=== PATIENT | male | born 1935 | race Asian ===

== ENCOUNTER 2019-09-19 06:17 | Day surgery (SDC) | payer MEDICARE, OTHER, SELFPAY ==
--- NOTE | 2019-09-18 17:29 | PM.PREOP ---
Pre-operative Note Interval Note History & Physical reviewed/Exam performed by Physician: Yes Changes to H&P: No
[2019-09-19] MEDS: CATARACT EYE COMPOUND (10 DROPS/SYRINGE) 3 DROPS EYE-OP (07:18)
[2019-09-19] MEDS: PROPARACAINE 0.5% OPHTH SOL 2 DROPS EYE-OP (07:18)
[2019-09-19 07:20] VITALS: BP 151/87; PULSE 57; RESP 16; TEMP 36.2; O2SAT 96; BMI 25.0
--- NOTE | 2019-09-19 07:27 | PM.OP.1 ---
Operative Date/Time/Diagnoses Date of procedure: 09/19/19 Time of procedure: 07:45 Procedure & Clinicians Procedure: Preoperative diagnoses: 1. Left complex surgery with use of capsular dye. 2. 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 3. 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 Recent subdural hematoma now clinically stabilized after surgery and subsequent testing. 5. Hypertension. Postoperative diagnoses: 1. Left complex surgery with use of capsular dye, 2. Placement of a posterior chamber intraocular lens implant. Surgeon: Mary Parikh MD Complications: none Specimen: None Implant: ZCBOO+18.5 Blood loss: None Anesthesia: Retrobulbar with monitored standby. Description of procedure: Dictated by: Mary Parikh MD Copy to: [facility] Post operative diagnoses: 1. Left complex cataract removed with use of capsular dye and with placement of a posterior chamber intraocular lens. Procedure: Complex phacoemulsification with posterior chamber intraocular lens implant Surgeon: Mary Parikh MD Blood loss: None Anesthesia: Retrobulbar with monitored standby Description of procedure: Patient has presented with decreased vision due to cataract which is affecting activities of daily living. He has advanced cataract and has been delayed due to the development of a subdural hematoma. This has been treated for several months drain and is cleared by Neurosurgery to proceed with cataract surgery. He is higher risk for complications due to floppy iris syndrome and poor anterior capsular view. He thinks his vision is compromised both at distance and reading. He will need capsular dye and a possible Malyugin ring. The patient wants surgery to improve vision. The patient was taken to the operating room and given IV sedation. A retrobulbar block consisting of 6 cc of 2% xylocaine without epinephrine mixed half and half with 0.5% Marcaine with 1 cc of hyaluronidase added is placed between the medial and lateral 1/3 of the inferior orbital rim. Lid akinesia is obtain with 1% xylocaine with epinephrine infiltrated along the lid margin. The eye is manually massaged for 30 sec, prepped using Betadine solution, and draped in the usual sterile fashion. Temporal approach was made, a 1 mm side-port incision was performed 90 degrees from the planned corneal wound. Phenylephrine 1.5% mixed with 1% xylocaine 0.2 cc was placed into the anterior chamber. An air bubble was placed and Visudyne dye was placed to improve visibility of the anterior capsule. The dye was irrigated out to reduce bubbles. Viscoat followed by Jeremie was then placed. A 2.6 mm clear incision with a 2.6 mm blade was placed. Good dilation was present and no capsular ring was used. A 360 degree capsulorrhexis style capsulotomy was then performed with a cystitome needle on a Healon greatly aided by the capsular dye. Hydrodelineation and hydrodissection were performed. The zonules were loose but held intact. The phacoemulsification unit is introduced, and sculpting used to groove the central lens. It is then removed in chopping mode. Epi nucleus is removed with epinuclear mode and irrigation aspiration was used to remove the peripheral cortex. The posterior capsule is polished. The intraocular lens is selected, inspected, power confirmed, and placed in the posterior chamber. The pupil was constricted with Miostat. The wound was stromally hydrated and tested for leaks, there was none and was left sutureless. Vigamox 0.1 cc was placed into the anterior chamber. Kenalog 0.2 cc was placed in the superior subconjunctival space. A drop of antibiotic and was placed and the eye was patched and shielded. The patient was stable and returned to the recovery room in excellent condition. Dictated by: Mary Parikh MD Copy to: [facility] Same procedure as scheduled: Yes
--- NOTE | 2019-09-19 08:10 | SUR.OPER ---
Supine on eye stretcher, head on extension cradle secured with tape. Arms tucked at sides with blanket. Pillow under knees.
[2019-09-19] MEDS: HYALURONATE SODIUM 10 MG/ML SYRINGE INJ (08:12)
[2019-09-19] MEDS: CHONDROIDTIN/SOD HYALURONATE 1.05 ML SYRINGE INTRAOCULA (08:12)
[2019-09-19] MEDS: LIDOCAINE 2% 4 ML, BUPIVACAINE 0.5% (PF) 4 ML, HYALURONIDASE 150 UNIT INJ (08:13)
[2019-09-19] MEDS: MOXIFLOXACIN INJ 5 MG/ML VIAL EYE-OP (08:14)
[2019-09-19] MEDS: PHENYLEPHRINE/LIDOCAINE VIAL (OR) 0.2 ML EYE-OP (08:16)
[2019-09-19] MEDS: BALANCED SALT IRRIG SOLN NO.2 500 ML, EPINEPHrine 1 MG IRR (08:17)
[2019-09-19] MEDS: TRIAMCINOLONE 50 MG/5 ML VIAL INJ (08:17)
[2019-09-19] MEDS: TRYPAN BLUE 0.5 ML SYRINGE INJ (08:18)
[2019-09-19] MEDS: ERYTHROMYCIN OPHTH 1 GM OINT 1 APPLIC EYE-LEFT (08:18)
[2019-09-19 08:40] VITALS: BP 135/64; PULSE 51; RESP 16; TEMP 36.4; O2SAT 98
[2019-09-19 08:57] VITALS: BP 140/72; PULSE 51; RESP 16; TEMP 36.3; O2SAT 98
== END 2019-09-19 09:00 | disposition home or self-care (01) ==
LOC: OR 06:19
PROVIDERS: PCP Internal Medicine; Referring Provider Ophthalmology; Visit Provider Ophthalmology
PROC: (CPT 66982; principal; 2019-09-19 07:45)
DX: I10 Essential (primary) hypertension (principal); Z98.890 Other specified postprocedural states
CPT/HCPCS: 66982; J0171; J2250; J2704; J3010; J3301; J3470

== ENCOUNTER → 2020-05-11 13:20 | Outpatient (CLI) | payer MEDICARE, OTHER, SELFPAY ==
[2020-05-12 13:18] LABS: COVID19 Sendout Not Detected (Not Detect)
== END ==
PROVIDERS: PCP Internal Medicine; Visit Provider Nurse Practitioner
DX: Z01.812 Encounter for preprocedural laboratory examination (principal)
CPT/HCPCS: 87635

== ENCOUNTER 2020-05-14 08:02 | Day surgery (SDC) | payer MEDICARE, OTHER, SELFPAY ==
--- NOTE | 2020-05-13 12:04 | PM.PREOP ---
Pre-operative Note COVID-19 COVID-19 status: Negative Interval Note History & Physical reviewed/Exam performed by Physician: Yes Changes to H&P: No
--- NOTE | 2020-05-13 12:08 | P.OP_ITS ---
Operative Date/Time/Diagnoses Date of procedure: 05/14/20 Time of procedure: 08:45 Procedure & Clinicians Procedure: Preoperative diagnoses: 1. Right complex surgery with use of capsular dye . 2. 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 4. Prostate disorder 5. Hypertension 6. History of subdural hematoma Postoperative diagnoses: 1. Complex surgery with use of capsular dye, attempted Malygin ring. 2. Placement of a posterior chamber intraocular lens implant. Surgeon: Mary Parikh MD Complications: none Specimen: None Implant: ZCBOO +18.0 Blood loss: None Anesthesia: Retrobulbar with monitored standby. Description of procedure: Dictated by: Mary Parikh MD Post operative diagnoses: 1. Right cataract removed with use of capsular dye 2. Placement of a posterior chamber intraocular lens. Procedure: Phacoemulsification with posterior chamber intraocular lens implant Surgeon: Mary Parikh MD Blood loss: None Anesthesia: Retrobulbar with monitored standby Description of procedure: Patient has presented with decreased vision due to advanced cataract which is affecting activities of daily living. He has delayed surgery due to the COVID-19 epidemic and now almost mature cataract. He also has a poorly dilating pupil due floppy iris syndrome and need for capsular dye and possibly Miloop. The patient wants surgery to improve vision. The patient was taken to the operating room and given IV sedation. A retrobulbar block consisting of 6 cc of 2% xylocaine without epinephrine mixed half and half with 0.5% Marcaine with 1 cc of hyaluronidase added is placed between the medial and lateral 1/3 of the inferior orbital rim. Lid akinesia is obtain with 1% xylocaine with epinephrine infiltrated along the lid margin. The eye is manually massaged for 30 sec, prepped using Betadine solution, and draped in the usual sterile fashion. Temporal approach was made, a 1 mm side-port incision was performed 90 degrees from the planned corneal wound. Phenylephrine 1.5% mixed with 1% xylocaine 0.2 cc was placed into the anterior chamber. An air bubble was placed and Visudyne dye was placed to improve visibility of the anterior capsule. The dye was irrigated out to reduce bubbles. Viscoat followed by Healon was then placed. A 2.6 mm clear incision with a 2.6 mm blade was placed. A 7.0 mm Maluygin ring was inspected and placed into the anterior capsule. It was sequentially hooked on 2 quadrants of iris. However after the epinephrine the pupil dilated large enough that it did not stay well and it was removed from the eye prior to the surgery proceeding A 360 degree capsulorrhexis style capsulotomy was then performed with a cystitome needle on a Healon aided by the capsular dye. He also had anterior stromal haze and loose zonules but all zonules held intact. No MiLoop was used. The lens was then hydrodissected and hydro delineated with that in the neutral central position. Once the initial cleave the was made if it was freed using a 2nd instrument.Hydrodelineation and hydrodissection were performed. The phacoemulsification unit is introduced, and sculpting used to groove the central lens. It is then removed in chopping mode. Epi nucleus is removed with epinuclear mode and irrigation aspiration was used to remove the peripheral cortex. The posterior capsule is polished. The intraocular lens is selected, inspected, power confirmed, and placed in the posterior chamber. The pupil was constricted with Miostat. The wound was stromally hydrated and tested for leaks, there was none and was left sutureless. Vigamox 0.1 cc was placed into the anterior chamber. Kenalog 0.2 cc was placed in the superior subconjunctival space. A drop of antibiotic and was placed and the eye was patched and shielded. The patient was stable and returned to the recovery room in excellent condition. Dictated by: Mary Parikh MD Copy to: [facility] Same procedure as scheduled: Yes
[2020-05-14] MEDS: PROPARACAINE 0.5% OPHTH SOL 2 DROPS EYE-OP (08:37)
[2020-05-14 08:38] VITALS: BP 182/76; PULSE 55; RESP 12; TEMP 36.8; O2SAT 97; BMI 25.0
[2020-05-14] MEDS: CATARACT EYE COMPOUND (10 DROPS/SYRINGE) 3 DROPS EYE-OP (08:52)
--- NOTE | 2020-05-14 10:30 | SUR.OPER ---
Supine on eye stretcher, head on extension cradle secured with tape. Arms tucked at sides with blanket. Pillow under knees.
[2020-05-14] MEDS: HYALURONATE SODIUM 10 MG/ML SYRINGE INJ (10:37)
[2020-05-14] MEDS: ERYTHROMYCIN OPHTH 1 GM OINT 1 APPLIC EYE-RIGHT (10:37)
[2020-05-14] MEDS: CHONDROIDTIN/SOD HYALURONATE 1.05 ML SYRINGE INTRAOCULA (10:37)
[2020-05-14] MEDS: MOXIFLOXACIN INJ 5 MG/ML VIAL EYE-OP (10:37)
[2020-05-14] MEDS: TRIAMCINOLONE 50 MG/5 ML VIAL INJ (10:38)
[2020-05-14] MEDS: TRYPAN BLUE 0.5 ML SYRINGE INJ (10:38)
[2020-05-14] MEDS: PHENYLEPHRINE/LIDOCAINE VIAL (OR) 0.2 ML EYE-OP (10:38)
[2020-05-14] MEDS: BALANCED SALT IRRIG SOLN NO.2 500 ML, EPINEPHrine 1 MG IRR (10:39)
[2020-05-14] MEDS: LIDOCAINE 2% 4 ML, BUPIVACAINE 0.5% (PF) 4 ML, HYALURONIDASE 150 UNIT INJ (10:39)
[2020-05-14 11:15] VITALS: BP 161/75; PULSE 53; RESP 14; TEMP 36.2; O2SAT 98
== END 2020-05-14 11:18 | disposition home or self-care (01) ==
LOC: OR 08:04
PROVIDERS: PCP Internal Medicine; Referring Provider Internal Medicine; Visit Provider Ophthalmology
PROC: (CPT 66982; principal; 2020-05-14 09:45)
DX: H25.811 Combined forms of age-related cataract, right eye (principal); H21.81 Floppy iris syndrome; I10 Essential (primary) hypertension
CPT/HCPCS: 66982; J0171; J2704; J3301; J3470

== ENCOUNTER 2021-08-10 11:00 | Emergency (ER) | payer MEDICARE, OTHER, SELFPAY ==
[2021-08-10] VITALS (158 sets, daily range): BP systolic 74–194; BP diastolic 37–102; PULSE 80–159; RESP 12–61; TEMP 37–38.8; O2SAT 82–100; BMI 22.0
--- NOTE | 2021-08-10 10:55 | ED.GENADULT ---
HPI - General Adult <Phoebe Vick MD - Last Filed: 08/17/21 04:08> General Chief complaint: Weakness Stated complaint: Lethargy, loc Time Seen by Provider: 08/10/21 11:00 History of Present Illness HPI narrative: 85-year-old gentleman with a history of hypertension and BPH has been having increasing difficulty with intermittent abdominal pain over this month. He is followed at the [facility] and on July 22 with abdominal pain he was sent to would be emergency department with visits also on the and . Records from the [facility] indicate that he was seen on the an ultrasound was done that confirmed acute cholecystitis and he was sent to [facility]. We have requested records from that visit. His daughter notes that he was discharged from the emergency department with nausea medicine and pain medication as well as strict diet instructions. Over this most recent week he has had increasing abdominal pain, fevers, chills, weakness, lethargy, vomiting, decreased appetite. His daughter notes that his memory has gotten significantly worse to the point that he is even having trouble caring on conversations. He complains of right upper abdominal pain. On initial presentation he is significantly hypotensive and globally weak. Related Data Home Medications Medication Instructions Recorded Confirmed finasteride 1 mg tablet 1 mg PO DAILY 09/19/19 08/10/21 tamsulosin 0.4 mg capsule 0.4 mg PO BEDTIME 09/19/19 08/10/21 telmisartan 40 mg tablet (Micardis) 20 mg PO DAILY 09/19/19 08/10/21 lidocaine 5 % topical patch 1 patch TOPICAL DAILY 08/10/21 08/10/21 loratadine 10 mg tablet 10 mg PO DAILY 08/10/21 08/10/21 ondansetron 4 mg disintegrating 4 mg PO Q6HR PRN 08/10/21 08/10/21 tablet oxycodone-acetaminophen 5 mg-325 1 tab PO Q6HR PRN 08/10/21 08/10/21 mg tablet (Percocet) Allergies Allergy/AdvReac Type Severity Reaction Status Date / Time lisinopril Allergy Intermediate Verified 05/14/20 08:34 Review of Systems <Phoebe Vick MD - Last Filed: 08/17/21 04:08> Review of Systems Narrative: Remainder of complete review of systems is limited because of the acute illness and acute cognitive deficits Patient History <Phoebe Vick MD - Last Filed: 08/17/21 04:08> Medical History (Updated 08/10/21 @ 17:13 by Phoebe Vick MD) BPH (benign prostatic hyperplasia) Hypertension Surgical History (Updated 08/10/21 @ 11:05 by Phoebe Vick MD) History of cataract surgery Social History household members: spouse Smoking Status: Former smoker alcohol intake: current Smoking Status: Former smoker alcohol intake frequency: holidays/special occasions only Substance Use Type: does not use Exam <Phoebe Vick MD - Last Filed: 08/17/21 04:08> Initial Vital Signs Initial Vital Signs: Vital Signs Temperature 98.6 F 08/10/21 10:45 Pulse Rate 80 08/10/21 10:45 Respiratory Rate 17 08/10/21 10:45 Blood Pressure 83/46 L 08/10/21 10:45 Pulse Oximetry 93 08/10/21 10:45 General: 85-year-old gentleman appears acutely ill, decreased mental status but maintaining airway, hypotensive. Able to participate in history but majority of history is obtained from his daughter.Well-nourished well-developed HEENT: Dry mucous membranes, normal sclera with reactive pupils, Neck: No JVD, supple Respiratory: Lungs are clear to auscultation, no wheezing no rales no rhonchi. Full and symmetrical air movement Cardiac: Regular rate and rhythm no murmurs no bruits Abdomen: Soft, tenderness in the right upper quadrant without rebound or guarding, hypoactive bowel tones, no flank pain Skin: Warm and dry, no rashes, no areas of concern for infection Neurologic: Globally weak but freely moving all extremities. Extremities: No trauma, well perfused, no edema. Psych: Cooperative, can answer direct questions <Tani Looney DO - Last Filed: 08/11/21 17:13> Initial Vital Signs Initial Vital Signs: Vital Signs Temperature 98.6 F 08/10/21 10:45 Pulse Rate 80 08/10/21 10:45 Respiratory Rate 17 08/10/21 10:45 Blood Pressure 83/46 L 08/10/21 10:45 Pulse Oximetry 93 08/10/21 10:45 Course <Phoebe Vick MD - Last Filed: 08/17/21 04:08> Orders Ordered: Discontinued Medications Acetaminophen (Acetaminophen 650 Mg Supp) 650 mg [place] NOW ONE Stop: 08/10/21 14:56 Last Admin: 08/10/21 15:00 Dose: 650 mg Documented by: VALENTINA Hydromorphone HCl (Hydromorphone 0.5 Mg Inj) 0.5 mg IV Q15MIN PRN PRN Reason: Pain, Last Admin: 08/10/21 19:42 Dose: 0.5 mg Documented by: Admin: 08/10/21 15:40 Dose: 0.5 mg Documented by: VALENTINA Sodium Chloride (Normal Saline 0.9%) 1,973.13 mls @ 657.71 mls/hr 30 ml/kg infuse over 3 hr (1973.13 ml) IV NOW ONE Stop: 08/10/21 14:08 Last Infusion: 08/10/21 12:15 Dose: 0 mls/hr Documented by: Admin: 08/10/21 11:32 Dose: 657.71 mls/hr Documented by: LISE Piperacillin Sod/Tazobactam (Sod 4.5 gm/ Sodium Chloride) 100 mls @ 200 mls/hr IV NOW ONE Stop: 08/10/21 11:10 Last Infusion: 08/10/21 12:05 Dose: 0 mls/hr Documented by: Admin: 08/10/21 11:32 Dose: 200 mls/hr Documented by: LISE NOREPINEPHRINE BITARTRATE/D5W (Levophed) 4 mg in 250 mls @ 30 mls/hr IV TITRATE CRISTA; Protocol Sodium Chloride (Normal Saline 0.9%) 1,000 mls @ 1,000 mls/hr IV BOLUS ONE Stop: 08/10/21 13:12 Last Infusion: 08/10/21 13:42 Dose: 0 mls/hr Documented by: Admin: 08/10/21 12:17 Dose: 1,000 mls/hr Documented by: LISE Sodium Chloride (Normal Saline 0.9%) 1,000 mls @ 1,000 mls/hr IV BOLUS ONE Stop: 08/10/21 15:58 Last Infusion: 08/10/21 16:03 Dose: 0 mls/hr Documented by: Admin: 08/10/21 14:45 Dose: 1,000 mls/hr Documented by: VALENTINA Lactated Ringer's (Lactated Ringers) 1,000 mls @ 200 mls/hr IV CONT CRISTA Last Infusion: 08/11/21 00:12 Dose: 0 mls/hr Documented by: Admin: 08/10/21 21:19 Dose: 200 mls/hr Documented by: Infusion: 08/10/21 21:03 Dose: 200 mls/hr Documented by: Admin: 08/10/21 16:03 Dose: 200 mls/hr Documented by: VALENTINA Piperacillin Sod/Tazobactam (Sod 3.375 gm/ Sodium Chloride) 100 mls @ 25 mls/hr IV Q8H [facility] Last Infusion: 08/11/21 00:53 Dose: 0 mls/hr Documented by: Admin: 08/10/21 20:04 Dose: 25 mls/hr Documented by: JUVENTINO Vital Signs Vital signs: Vital Signs - 8 hr 08/10/21 13:45 08/10/21 14:00 08/10/21 14:15 Temperature Pulse Rate 85 81 94 H Respiratory Rate 31 H 29 H 32 H Blood Pressure Pulse Oximetry 95 95 92 08/10/21 14:30 08/10/21 14:36 08/10/21 14:43 Temperature Pulse Rate 109 H 117 H 125 H Respiratory Rate 33 H 44 H 47 H Blood Pressure 177/87 H 176/91 H Pulse Oximetry 91 91 82 L 08/10/21 14:45 08/10/21 15:00 08/10/21 15:07 Temperature 99.7 F H Pulse Rate 129 H 154 H 156 H Respiratory Rate 47 H 51 H 44 H Blood Pressure 176/100 H Pulse Oximetry 87 L 98 98 08/10/21 15:15 08/10/21 15:23 08/10/21 15:24 Temperature 102 F H Pulse Rate 159 H 155 H 157 H Respiratory Rate 47 H 44 H 44 H Blood Pressure 192/102 H 173/100 H 194/83 H Pulse Oximetry 94 100 97 08/10/21 15:29 08/10/21 15:30 08/10/21 15:35 Temperature Pulse Rate 150 H 152 H 145 H Respiratory Rate 38 H 54 H 61 H Blood Pressure 192/91 H Pulse Oximetry 91 94 99 08/10/21 15:40 08/10/21 15:45 08/10/21 15:50 Temperature Pulse Rate 144 H 126 H 123 H Respiratory Rate 36 H 21 27 H Blood Pressure 107/53 L Pulse Oximetry 99 99 95 08/10/21 15:54 08/10/21 15:55 08/10/21 16:00 Temperature Pulse Rate 122 H 121 H 118 H Respiratory Rate 23 23 34 H Blood Pressure 98/46 L 96/46 L Pulse Oximetry 94 95 96 08/10/21 16:05 08/10/21 16:10 08/10/21 16:15 Temperature Pulse Rate 120 H 117 H 118 H Respiratory Rate 27 H 23 24 Blood Pressure 85/43 L Pulse Oximetry 95 96 96 08/10/21 16:20 08/10/21 16:24 08/10/21 16:25 Temperature Pulse Rate 117 H 118 H 118 H Respiratory Rate 23 26 H 22 Blood Pressure 86/46 L 90/42 L Pulse Oximetry 96 97 97 08/10/21 16:30 08/10/21 16:35 08/10/21 16:40 Temperature Pulse Rate 118 H 116 H 117 H Respiratory Rate 28 H 20 32 H Blood Pressure 91/43 L 93/46 L 92/45 L Pulse Oximetry 97 98 98 08/10/21 16:45 08/10/21 16:50 08/10/21 16:55 Temperature Pulse Rate 119 H 121 H 117 H Respiratory Rate 29 H 33 H 22 Blood Pressure 96/52 L 97/50 L 104/53 L Pulse Oximetry 98 98 98 08/10/21 17:00 08/10/21 17:05 08/10/21 17:10 Temperature Pulse Rate 116 H 117 H 118 H Respiratory Rate 21 37 H 17 Blood Pressure 97/50 L 97/50 L 103/53 L Pulse Oximetry 98 98 98 08/10/21 17:15 08/10/21 17:20 08/10/21 17:25 Temperature Pulse Rate 116 H 119 H 116 H Respiratory Rate 19 21 21 Blood Pressure 99/55 L 99/54 L 94/51 L Pulse Oximetry 97 97 97 08/10/21 17:30 08/10/21 17:35 08/10/21 17:40 Temperature Pulse Rate 116 H 116 H 114 H Respiratory Rate 16 25 H 25 H Blood Pressure 94/55 L 96/49 L 97/50 L Pulse Oximetry 97 97 97 08/10/21 17:45 08/10/21 17:50 08/10/21 17:55 Temperature Pulse Rate 113 H 111 H 112 H Respiratory Rate 23 20 22 Blood Pressure 92/52 L 98/52 L 86/47 L Pulse Oximetry 97 97 97 08/10/21 18:00 08/10/21 18:05 08/10/21 18:10 Temperature Pulse Rate 111 H 110 H 109 H Respiratory Rate 17 21 19 Blood Pressure 86/48 L 86/49 L 86/49 L Pulse Oximetry 97 97 97 08/10/21 18:15 08/10/21 18:20 08/10/21 18:25 Temperature Pulse Rate 108 H 107 H 105 H Respiratory Rate 27 H 25 H 24 Blood Pressure 86/49 L 83/48 L 94/53 L Pulse Oximetry 97 98 98 08/10/21 18:30 08/10/21 18:35 08/10/21 18:40 Temperature Pulse Rate 104 H 104 H 104 H Respiratory Rate 23 24 23 Blood Pressure 91/52 L 89/54 L 90/51 L Pulse Oximetry 97 97 96 08/10/21 18:45 08/10/21 18:50 08/10/21 18:55 Temperature Pulse Rate 103 H 103 H 102 H Respiratory Rate 15 20 22 Blood Pressure 91/54 L 90/51 L 89/54 L Pulse Oximetry 97 97 97 08/10/21 19:00 08/10/21 19:05 08/10/21 19:10 Temperature Pulse Rate 101 H 105 H 103 H Respiratory Rate 28 H 31 H 36 H Blood Pressure 92/54 L 103/57 L 108/53 L Pulse Oximetry 98 96 96 08/10/21 19:15 08/10/21 19:20 08/10/21 19:21 Temperature Pulse Rate 100 H 100 H 103 H Respiratory Rate 29 H 28 H 30 H Blood Pressure 96/53 L 109/56 L Pulse Oximetry 97 98 98 08/10/21 19:25 08/10/21 19:30 08/10/21 19:35 Temperature Pulse Rate 100 H 100 H 98 H Respiratory Rate 28 H 24 26 H Blood Pressure 98/56 L 94/51 L 98/57 L Pulse Oximetry 97 97 97 08/10/21 19:40 08/10/21 19:45 08/10/21 19:50 Temperature Pulse Rate 98 H 94 H 94 H Respiratory Rate 29 H 28 H 18 Blood Pressure 102/61 95/54 L 85/54 L Pulse Oximetry 98 97 97 08/10/21 19:55 08/10/21 20:00 08/10/21 20:05 Temperature Pulse Rate 95 H 97 H 98 H Respiratory Rate 18 18 17 Blood Pressure 98/54 L 104/56 L 105/55 L Pulse Oximetry 97 97 98 08/10/21 20:10 08/10/21 20:15 08/10/21 20:20 Temperature Pulse Rate 100 H 101 H 101 H Respiratory Rate 19 19 16 Blood Pressure 110/59 L 115/63 115/62 Pulse Oximetry 97 96 97 08/10/21 20:25 08/10/21 20:30 08/10/21 20:46 Temperature 99.8 F H Pulse Rate 101 H 100 H Respiratory Rate 19 16 Blood Pressure 109/56 L 111/55 L Pulse Oximetry 97 98 <Tani Looney DO - Last Filed: 08/11/21 17:13> Orders Ordered: Discontinued Medications Acetaminophen (Acetaminophen 650 Mg Supp) 650 mg [place] NOW ONE Stop: 08/10/21 14:56 Last Admin: 08/10/21 15:00 Dose: 650 mg Documented by: VALENTINA Hydromorphone HCl (Hydromorphone 0.5 Mg Inj) 0.5 mg IV Q15MIN PRN PRN Reason: Pain, Last Admin: 08/10/21 19:42 Dose: 0.5 mg Documented by: Admin: 08/10/21 15:40 Dose: 0.5 mg Documented by: VALENTINA Sodium Chloride (Normal Saline 0.9%) 1,973.13 mls @ 657.71 mls/hr 30 ml/kg infuse over 3 hr (1973.13 ml) IV NOW ONE Stop: 08/10/21 14:08 Last Infusion: 08/10/21 12:15 Dose: 0 mls/hr Documented by: Admin: 08/10/21 11:32 Dose: 657.71 mls/hr Documented by: LISE Piperacillin Sod/Tazobactam (Sod 4.5 gm/ Sodium Chloride) 100 mls @ 200 mls/hr IV NOW ONE Stop: 08/10/21 11:10 Last Infusion: 08/10/21 12:05 Dose: 0 mls/hr Documented by: Admin: 08/10/21 11:32 Dose: 200 mls/hr Documented by: LISE NOREPINEPHRINE BITARTRATE/D5W (Levophed) 4 mg in 250 mls @ 30 mls/hr IV TITRATE CRISTA; Protocol Sodium Chloride (Normal Saline 0.9%) 1,000 mls @ 1,000 mls/hr IV BOLUS ONE Stop: 08/10/21 13:12 Last Infusion: 08/10/21 13:42 Dose: 0 mls/hr Documented by: Admin: 08/10/21 12:17 Dose: 1,000 mls/hr Documented by: LISE Sodium Chloride (Normal Saline 0.9%) 1,000 mls @ 1,000 mls/hr IV BOLUS ONE Stop: 08/10/21 15:58 Last Infusion: 08/10/21 16:03 Dose: 0 mls/hr Documented by: Admin: 08/10/21 14:45 Dose: 1,000 mls/hr Documented by: VALENTINA Lactated Ringer's (Lactated Ringers) 1,000 mls @ 200 mls/hr IV CONT CRISTA Last Infusion: 08/11/21 00:12 Dose: 0 mls/hr Documented by: Admin: 08/10/21 21:19 Dose: 200 mls/hr Documented by: Infusion: 08/10/21 21:03 Dose: 200 mls/hr Documented by: Admin: 08/10/21 16:03 Dose: 200 mls/hr Documented by: VALENTINA Piperacillin Sod/Tazobactam (Sod 3.375 gm/ Sodium Chloride) 100 mls @ 25 mls/hr IV Q8H [facility] Last Infusion: 08/11/21 00:53 Dose: 0 mls/hr Documented by: Admin: 08/10/21 20:04 Dose: 25 mls/hr Documented by: KWOYSKI Vital Signs Vital signs: Vital Signs - 8 hr 08/10/21 13:45 08/10/21 14:00 08/10/21 14:15 Temperature Pulse Rate 85 81 94 H Respiratory Rate 31 H 29 H 32 H Blood Pressure Pulse Oximetry 95 95 92 08/10/21 14:30 08/10/21 14:36 08/10/21 14:43 Temperature Pulse Rate 109 H 117 H 125 H Respiratory Rate 33 H 44 H 47 H Blood Pressure 177/87 H 176/91 H Pulse Oximetry 91 91 82 L 08/10/21 14:45 08/10/21 15:00 08/10/21 15:07 Temperature 99.7 F H Pulse Rate 129 H 154 H 156 H Respiratory Rate 47 H 51 H 44 H Blood Pressure 176/100 H Pulse Oximetry 87 L 98 98 08/10/21 15:15 08/10/21 15:23 08/10/21 15:24 Temperature 102 F H Pulse Rate 159 H 155 H 157 H Respiratory Rate 47 H 44 H 44 H Blood Pressure 192/102 H 173/100 H 194/83 H Pulse Oximetry 94 100 97 08/10/21 15:29 08/10/21 15:30 08/10/21 15:35 Temperature Pulse Rate 150 H 152 H 145 H Respiratory Rate 38 H 54 H 61 H Blood Pressure 192/91 H Pulse Oximetry 91 94 99 08/10/21 15:40 08/10/21 15:45 08/10/21 15:50 Temperature Pulse Rate 144 H 126 H 123 H Respiratory Rate 36 H 21 27 H Blood Pressure 107/53 L Pulse Oximetry 99 99 95 08/10/21 15:54 08/10/21 15:55 08/10/21 16:00 Temperature Pulse Rate 122 H 121 H 118 H Respiratory Rate 23 23 34 H Blood Pressure 98/46 L 96/46 L Pulse Oximetry 94 95 96 08/10/21 16:05 08/10/21 16:10 08/10/21 16:15 Temperature Pulse Rate 120 H 117 H 118 H Respiratory Rate 27 H 23 24 Blood Pressure 85/43 L Pulse Oximetry 95 96 96 08/10/21 16:20 08/10/21 16:24 08/10/21 16:25 Temperature Pulse Rate 117 H 118 H 118 H Respiratory Rate 23 26 H 22 Blood Pressure 86/46 L 90/42 L Pulse Oximetry 96 97 97 08/10/21 16:30 08/10/21 16:35 08/10/21 16:40 Temperature Pulse Rate 118 H 116 H 117 H Respiratory Rate 28 H 20 32 H Blood Pressure 91/43 L 93/46 L 92/45 L Pulse Oximetry 97 98 98 08/10/21 16:45 08/10/21 16:50 08/10/21 16:55 Temperature Pulse Rate 119 H 121 H 117 H Respiratory Rate 29 H 33 H 22 Blood Pressure 96/52 L 97/50 L 104/53 L Pulse Oximetry 98 98 98 08/10/21 17:00 08/10/21 17:05 08/10/21 17:10 Temperature Pulse Rate 116 H 117 H 118 H Respiratory Rate 21 37 H 17 Blood Pressure 97/50 L 97/50 L 103/53 L Pulse Oximetry 98 98 98 08/10/21 17:15 08/10/21 17:20 08/10/21 17:25 Temperature Pulse Rate 116 H 119 H 116 H Respiratory Rate 19 21 21 Blood Pressure 99/55 L 99/54 L 94/51 L Pulse Oximetry 97 97 97 08/10/21 17:30 08/10/21 17:35 08/10/21 17:40 Temperature Pulse Rate 116 H 116 H 114 H Respiratory Rate 16 25 H 25 H Blood Pressure 94/55 L 96/49 L 97/50 L Pulse Oximetry 97 97 97 08/10/21 17:45 08/10/21 17:50 08/10/21 17:55 Temperature Pulse Rate 113 H 111 H 112 H Respiratory Rate 23 20 22 Blood Pressure 92/52 L 98/52 L 86/47 L Pulse Oximetry 97 97 97 08/10/21 18:00 08/10/21 18:05 08/10/21 18:10 Temperature Pulse Rate 111 H 110 H 109 H Respiratory Rate 17 21 19 Blood Pressure 86/48 L 86/49 L 86/49 L Pulse Oximetry 97 97 97 08/10/21 18:15 08/10/21 18:20 08/10/21 18:25 Temperature Pulse Rate 108 H 107 H 105 H Respiratory Rate 27 H 25 H 24 Blood Pressure 86/49 L 83/48 L 94/53 L Pulse Oximetry 97 98 98 08/10/21 18:30 08/10/21 18:35 08/10/21 18:40 Temperature Pulse Rate 104 H 104 H 104 H Respiratory Rate 23 24 23 Blood Pressure 91/52 L 89/54 L 90/51 L Pulse Oximetry 97 97 96 08/10/21 18:45 08/10/21 18:50 08/10/21 18:55 Temperature Pulse Rate 103 H 103 H 102 H Respiratory Rate 15 20 22 Blood Pressure 91/54 L 90/51 L 89/54 L Pulse Oximetry 97 97 97 08/10/21 19:00 08/10/21 19:05 08/10/21 19:10 Temperature Pulse Rate 101 H 105 H 103 H Respiratory Rate 28 H 31 H 36 H Blood Pressure 92/54 L 103/57 L 108/53 L Pulse Oximetry 98 96 96 08/10/21 19:15 08/10/21 19:20 08/10/21 19:21 Temperature Pulse Rate 100 H 100 H 103 H Respiratory Rate 29 H 28 H 30 H Blood Pressure 96/53 L 109/56 L Pulse Oximetry 97 98 98 08/10/21 19:25 08/10/21 19:30 08/10/21 19:35 Temperature Pulse Rate 100 H 100 H 98 H Respiratory Rate 28 H 24 26 H Blood Pressure 98/56 L 94/51 L 98/57 L Pulse Oximetry 97 97 97 08/10/21 19:40 08/10/21 19:45 08/10/21 19:50 Temperature Pulse Rate 98 H 94 H 94 H Respiratory Rate 29 H 28 H 18 Blood Pressure 102/61 95/54 L 85/54 L Pulse Oximetry 98 97 97 08/10/21 19:55 08/10/21 20:00 08/10/21 20:05 Temperature Pulse Rate 95 H 97 H 98 H Respiratory Rate 18 18 17 Blood Pressure 98/54 L 104/56 L 105/55 L Pulse Oximetry 97 97 98 08/10/21 20:10 08/10/21 20:15 08/10/21 20:20 Temperature Pulse Rate 100 H 101 H 101 H Respiratory Rate 19 19 16 Blood Pressure 110/59 L 115/63 115/62 Pulse Oximetry 97 96 97 08/10/21 20:25 08/10/21 20:30 08/10/21 20:46 Temperature 99.8 F H Pulse Rate 101 H 100 H Respiratory Rate 19 16 Blood Pressure 109/56 L 111/55 L Pulse Oximetry 97 98 Medical Decision Making <Phoebe Vick MD - Last Filed: 08/17/21 04:08> Lab Data Result diagrams: 08/10/21 10:50 08/10/21 10:50 Labs: Lab Results 08/10/21 08/10/21 08/10/21 Range/Units 10:50 10:50 10:50 WBC 16.9 H (4.5-11.0) X10^3/uL RBC 4.26 L (4.5-5.9) X10^6/uL Hgb 9.7 L (13.5-17.5) g/dL Hct 30.4 L (41-53) % MCV 71.3 L (80-100) fL MCH 22.7 L (26-34) PG MCHC 31.9 (30-36) % RDW 13.9 (11.6-14.8) % Plt Count 278 (150-400) X10^3/uL Neut % (Auto) 94.4 H (50-75) % Lymph % (Auto) 1.2 L (25-40) % [place] % (Auto) 3.9 (3-14) % Eos % (Auto) 0.1 L (2-4) % Baso % (Auto) 0.4 (0-2) % Neut # (Auto) 66351 H (0514-5684) /uL Lymph # (Auto) 200 L (6495-5541) /uL [place] # (Auto) 700 (0-900) /uL Eos # (Auto) 0 (0-450) /uL Baso # (Auto) 100 (0-100) /uL Sodium 133 L (137-145) mmol/L Potassium 3.9 (3.4-5.1) mmol/L Chloride 102 (98-107) mmol/L Carbon Dioxide 27 (22-32) mmol/L BUN 61 H (9-20) mg/dL Creatinine 1.68 H (0.66-1.25) mg/dL Estimated GFR 39.2 L (>60) mL/min BUN/Creatinine Ratio 36.3 H (6-22) Glucose 179 H (80-110) mg/dL Lactate 1.7 (0.7-2.1) mmol/L Calcium 7.8 L (8.4-10.2) mg/dL Total Bilirubin 1.0 (0.2-1.3) mg/dL AST 142 H (17-59) IU/L ALT 124 H (<50) IU/L Alkaline Phosphatase 169 H (38-126) U/L Total Creatine Kinase 50 L (55-170) U/L CK-MB (CK-2) TNP CK-MB (CK-2) Rel Index TNP Troponin I 0.134 H* (0.01-0.034) ng/mL Total Protein 5.5 L (6.3-8.2) g/dL Albumin 2.5 L (3.5-5.0) g/dL Globulin 3.0 (1.7-4.1) g/dL Albumin/Globulin Ratio 0.8 L (1.0-2.8) Lipase 31 (23-300) U/L Procalcitonin 61.1 H (<0.5) ng/mL Urine Color Urine Appearance Urine pH (4.5-8.0) Ur Specific [place] (1.000-1.035) Urine Protein (Negative) Urine Glucose (UA) (Negative) g/dL Urine Ketones (NEGATIVE) Urine Occult Blood (Negative) Urine Nitrate (Negative) Urine Bilirubin (NEGATIVE) Urine Urobilinogen (0.2) E.U./dL Ur Leukocyte Esterase (NEGATIVE) Urine RBC (0-5/HPF) Urine WBC (0-5/HPF) Ur Squamous Epith Cells (0-5/HPF) Urine Bacteria (None) Hyaline Casts (None) Granular Casts (None) Urine Mucus (Negative) Ur Culture Indicated? A. baumannii (PCR) (Not Detect) Madhavi albicans (PCR) (Not Detect) C. glabrata (PCR) (Not Detect) C. krusei (PCR) (Not Detect) C. parapsilosis (PCR) (Not Detect) C. tropicalis (PCR) (Not Detect) SARS-CoV-2 (PCR) (Negative) Enterobacteriac sp PCR (Not Detect) E. cloacae complex PCR (Not Detect) Enterococcus sp PCR (Not Detect) E. coli (PCR) (Not Detect) H. influenzae (PCR) (Not Detect) Klebsiella oxytoca PCR (Not Detect) Klebsiella pneumoniae (Not Detect) List. monocytogenes PCR (Not Detect) N. meningitidis (PCR) (Not Detect) Proteus species (PCR) (Not Detect) Serratia marcescens PCR (Not Detect) Staphylococcus sp PCR (Not Detect) Staph aureus (PCR) (Not Detect) mecA-Methicil Res Gene (Not Detect) Streptococcus sp PCR (Not Detect) Group A Strep (PCR) (Not Detect) Strep agalactiae (PCR) (Not Detect) Strep pneumoniae (PCR) (Not Detect) P. aeruginosa (PCR) (Not Detect) Kelly/B-Vanco Res Genes (Not Detect) KPC-Carbap Res Gene PCR (Not Detect) 08/10/21 08/10/21 08/10/21 Range/Units 11:00 11:00 11:15 WBC (4.5-11.0) X10^3/uL RBC (4.5-5.9) X10^6/uL Hgb (13.5-17.5) g/dL Hct (41-53) % MCV (80-100) fL MCH (26-34) PG MCHC (30-36) % RDW (11.6-14.8) % Plt Count (150-400) X10^3/uL Neut % (Auto) (50-75) % Lymph % (Auto) (25-40) % [place] % (Auto) (3-14) % Eos % (Auto) (2-4) % Baso % (Auto) (0-2) % Neut # (Auto) (0608-4958) /uL Lymph # (Auto) (1090-4150) /uL [place] # (Auto) (0-900) /uL Eos # (Auto) (0-450) /uL Baso # (Auto) (0-100) /uL Sodium (137-145) mmol/L Potassium (3.4-5.1) mmol/L Chloride (98-107) mmol/L Carbon Dioxide (22-32) mmol/L BUN (9-20) mg/dL Creatinine (0.66-1.25) mg/dL Estimated GFR (>60) mL/min BUN/Creatinine Ratio (6-22) Glucose (80-110) mg/dL Lactate (0.7-2.1) mmol/L Calcium (8.4-10.2) mg/dL Total Bilirubin (0.2-1.3) mg/dL AST (17-59) IU/L ALT (<50) IU/L Alkaline Phosphatase (38-126) U/L Total Creatine Kinase (55-170) U/L CK-MB (CK-2) CK-MB (CK-2) Rel Index Troponin I (0.01-0.034) ng/mL Total Protein (6.3-8.2) g/dL Albumin (3.5-5.0) g/dL Globulin (1.7-4.1) g/dL Albumin/Globulin Ratio (1.0-2.8) Lipase (23-300) U/L Procalcitonin (<0.5) ng/mL Urine Color Yellow Urine Appearance Clear Urine pH 5.0 (4.5-8.0) Ur Specific [place] 1.010 (1.000-1.035) Urine Protein 1+ H (Negative) Urine Glucose (UA) Negative (Negative) g/dL Urine Ketones Negative (NEGATIVE) Urine Occult Blood Trace-intact (Negative) Urine Nitrate Negative (Negative) Urine Bilirubin Negative (NEGATIVE) Urine Urobilinogen 0.2 (0.2) E.U./dL Ur Leukocyte Esterase Negative (NEGATIVE) Urine RBC None seen (0-5/HPF) Urine WBC 0-1/hpf (0-5/HPF) Ur Squamous Epith Cells None seen (0-5/HPF) Urine Bacteria None seen (None) Hyaline Casts 1-5/lpf (None) Granular Casts 1-5/lpf (None) Urine Mucus 1+ H (Negative) Ur Culture Indicated? Cult not indicated A. baumannii (PCR) Not detected (Not Detect) Madhavi albicans (PCR) Not detected (Not Detect) C. glabrata (PCR) Not detected (Not Detect) C. krusei (PCR) Not detected (Not Detect) C. parapsilosis (PCR) Not detected (Not Detect) C. tropicalis (PCR) Not detected (Not Detect) SARS-CoV-2 (PCR) Negative (Negative) Enterobacteriac sp PCR Detected H (Not Detect) E. cloacae complex PCR Not detected (Not Detect) Enterococcus sp PCR Not detected (Not Detect) E. coli (PCR) Not detected (Not Detect) H. influenzae (PCR) Not detected (Not Detect) Klebsiella oxytoca PCR Not detected (Not Detect) Klebsiella pneumoniae Detected H (Not Detect) List. monocytogenes PCR Not detected (Not Detect) N. meningitidis (PCR) Not detected (Not Detect) Proteus species (PCR) Not detected (Not Detect) Serratia marcescens PCR Not detected (Not Detect) Staphylococcus sp PCR Not detected (Not Detect) Staph aureus (PCR) Not detected (Not Detect) mecA-Methicil Res Gene Not detected (Not Detect) Streptococcus sp PCR Not detected (Not Detect) Group A Strep (PCR) Not detected (Not Detect) Strep agalactiae (PCR) Not detected (Not Detect) Strep pneumoniae (PCR) Not detected (Not Detect) P. aeruginosa (PCR) Not detected (Not Detect) Kelly/B-Vanco Res Genes Not detected (Not Detect) KPC-Carbap Res Gene PCR Not detected (Not Detect) 08/10/21 08/10/21 Range/Units 16:00 16:00 WBC (4.5-11.0) X10^3/uL RBC (4.5-5.9) X10^6/uL Hgb (13.5-17.5) g/dL Hct (41-53) % MCV (80-100) fL MCH (26-34) PG MCHC (30-36) % RDW (11.6-14.8) % Plt Count (150-400) X10^3/uL Neut % (Auto) (50-75) % Lymph % (Auto) (25-40) % [place] % (Auto) (3-14) % Eos % (Auto) (2-4) % Baso % (Auto) (0-2) % Neut # (Auto) (8102-9367) /uL Lymph # (Auto) (6729-6977) /uL [place] # (Auto) (0-900) /uL Eos # (Auto) (0-450) /uL Baso # (Auto) (0-100) /uL Sodium (137-145) mmol/L Potassium (3.4-5.1) mmol/L Chloride (98-107) mmol/L Carbon Dioxide (22-32) mmol/L BUN (9-20) mg/dL Creatinine (0.66-1.25) mg/dL Estimated GFR (>60) mL/min BUN/Creatinine Ratio (6-22) Glucose (80-110) mg/dL Lactate 1.4 (0.7-2.1) mmol/L Calcium (8.4-10.2) mg/dL Total Bilirubin (0.2-1.3) mg/dL AST (17-59) IU/L ALT (<50) IU/L Alkaline Phosphatase (38-126) U/L Total Creatine Kinase (55-170) U/L CK-MB (CK-2) CK-MB (CK-2) Rel Index Troponin I 0.083 H (0.01-0.034) ng/mL Total Protein (6.3-8.2) g/dL Albumin (3.5-5.0) g/dL Globulin (1.7-4.1) g/dL Albumin/Globulin Ratio (1.0-2.8) Lipase (23-300) U/L Procalcitonin (<0.5) ng/mL Urine Color Urine Appearance Urine pH (4.5-8.0) Ur Specific [place] (1.000-1.035) Urine Protein (Negative) Urine Glucose (UA) (Negative) g/dL Urine Ketones (NEGATIVE) Urine Occult Blood (Negative) Urine Nitrate (Negative) Urine Bilirubin (NEGATIVE) Urine Urobilinogen (0.2) E.U./dL Ur Leukocyte Esterase (NEGATIVE) Urine RBC (0-5/HPF) Urine WBC (0-5/HPF) Ur Squamous Epith Cells (0-5/HPF) Urine Bacteria (None) Hyaline Casts (None) Granular Casts (None) Urine Mucus (Negative) Ur Culture Indicated? A. baumannii (PCR) (Not Detect) Madhavi albicans (PCR) (Not Detect) C. glabrata (PCR) (Not Detect) C. krusei (PCR) (Not Detect) C. parapsilosis (PCR) (Not Detect) C. tropicalis (PCR) (Not Detect) SARS-CoV-2 (PCR) (Negative) Enterobacteriac sp PCR (Not Detect) E. cloacae complex PCR (Not Detect) Enterococcus sp PCR (Not Detect) E. coli (PCR) (Not Detect) H. influenzae (PCR) (Not Detect) Klebsiella oxytoca PCR (Not Detect) Klebsiella pneumoniae (Not Detect) List. monocytogenes PCR (Not Detect) N. meningitidis (PCR) (Not Detect) Proteus species (PCR) (Not Detect) Serratia marcescens PCR (Not Detect) Staphylococcus sp PCR (Not Detect) Staph aureus (PCR) (Not Detect) mecA-Methicil Res Gene (Not Detect) Streptococcus sp PCR (Not Detect) Group A Strep (PCR) (Not Detect) Strep agalactiae (PCR) (Not Detect) Strep pneumoniae (PCR) (Not Detect) P. aeruginosa (PCR) (Not Detect) Kelly/B-Vanco Res Genes (Not Detect) KPC-Carbap Res Gene PCR (Not Detect) Imaging Data CT scan - abdomen/pelvis: Radiologist's Impression: FINDINGS: ? Lower thorax:? Moderate right pleural effusion with calcified pleural plaquing noted.? Associated compressive atelectasis and or infiltrate.? Left lung bases clear.? Heart size normal.? No hiatal hernia. ? Liver:? Multiple hepatic low-density lesions measure up to 5.0 x 3.3 cm in the right hepatic lobe.? Irregular enhancement noted without significant encapsulation. ? Biliary system:? Gallbladder shows wall thickening and probable trace pericholecystic fluid. ? Pancreas:? Unremarkable without mass or inflammation evident. ? Spleen:? Normal in size and density. ? Adrenals:? Normal morphology and density. ? Reproductive system:? Unremarkable as visualized. ? Urinary system:? Normal renal size and attenuation.? 2.7 cm right renal cortical simple cyst present.? No renal calculi, hydronephrosis, or solid mass present.? Urinary bladder is decompressed with a Adams catheter curled in the lumen of the bladder. ? Gastrointestinal system:? The bowel is unremarkable without evidence of bowel obstruction or inflammation. The stomach appears unremarkable.? Probable duodenal large diverticuli measure up to 2.7 cm arise from the 3rd portion the duodenum.? Multiple diverticula arise from the sigmoid colon without evidence of diverticulitis. ? ? Appendix:? No findings to suggest acute appendicitis. ? Peritoneal spaces:? No mesenteric or retroperitoneal adenopathy.? No free air.? Small amount of free fluid noted in the pelvis.? ? Vasculature:? Aortic atherosclerotic vascular calcification noted without evidence of aneurysm. ? Abdominal wall:? Small ventral hernia contains fat without bowel involvement. ? Musculoskeletal:? Normal bone mineralization.? Degenerative disc disease and arthropathy noted in lower lumbar spine.? No acute fractures.? ? IMPRESSION: ? 1. Multiple low-density hepatic lesions with irregular enhancement.? Differential includes metastatic disease, and given the clinical history, multifocal hepatic abscess is also possible. ? 2. Sigmoid diverticulosis without evidence of diverticulitis.? ? 3. Moderate right pleural effusion with associated compressive atelectasis and or infiltrate as well as calcified pleural plaquing ? 4. Mild gallbladder wall thickening with pericholecystic fluid.? Consider ultrasound correlation.? Approved by: Dez Koch M.D. on 08/10/2021 at 11:43? MDM Narrative Medical decision making narrative: On re-evaluation. After 2 L of fluid blood pressure was up to 90/54. Will begin Levophed through a peripheral IV. Significant leukocytosis with left shift H&H today is 9.7 and 30.4 on July 29 it was 12.7 and 39.1 no obvious signs of bleeding will need to repeat Significant dehydration with acute kidney injury creatinine on July 29 was 1 today is 1.68 with a BUN of 61. Continue with fluids. LFTs so slight increase in AST and ALT, bilirubin and alkaline phosphatase are stable. Troponin is elevated at 0.13 for without acute ischemic EKG changes 1215pm records from [facility] Emergency Department on the a reviewed. Patient was felt to have acute cholecystitis offered surgery and seen and evaluated by the surgeon. Patient declined surgery and plan was for him to follow-up in outpatient clinic. 1220 patient is re-evaluated. Blood pressure systolic is now up to 115. He is more cognitively appropriate and able to interact with additional questioning. Past about his previous ER visits and the family perception regarding the visit from the was that his gallbladder was not that sick and surgery was not required and the physician that they talk to was not sure what surgery would be done which made them uncomfortable. They chose outpatient follow-up. As symptoms worsened over this week he called to schedule a follow-up appointment with his primary care provider at the [facility]. That provider was leaving a new provider is coming in and an appointment to establish care is schedule for August 14. His daughter came up to visit this weekend and felt that he was getting worse. When he developed a fever last night and again this morning she decided to bring him to the ER but was not able to get him into the car because of his weakness the son called 911. End of life issues are reviewed and patient is absolutely full code and would want surgery 130pm studies reviewed in real-time with radiologist. Compared to CT scan done at [facility] 2 weeks ago the hepatic lesions are new suggesting abscess rather than metastatic disease. Given his acute cholecystitis, sepsis, hepatic abscesses and NSTEMI he will need a higher level of care and will be and looking for bed availability. At this time he is getting a PICC line placed and he has responded nicely to fluids with blood pressure currently at 111/65 without pressors. 2:38 transfer center. Will make sure CT scan has been sent, detailed case are given to transfer center nurse. 240 acute deteriorations clinical status. Significant rigors with rhythm change to a wide complex tachycardia in the 150 and significant hypertension complaining of chest pain and tightness. He was given rectal Tylenol for the rigors, additional fluids and pain control. Is now back down to sinus tachycardia in the 117 range with blood pressures stable at 103 systolic with fluids running at 200 an hour and not currently needing pressors. The event happened shortly after midline catheter was placed for more central venous access. There is no evidence of pneumothorax post procedure labs post event show that lactate is trending down and troponin was also trending down. Will need follow. 500pm Discussion with MICU fellow at [facility], DR Putnam. Will need to discuss with Surgery and/or IR. 6:48 care is transferred to Dr Looney <Tani Looney, DO - Last Filed: 08/11/21 17:13> Lab Data Labs: Lab Results 08/10/21 08/10/21 08/10/21 Range/Units 10:50 10:50 10:50 WBC 16.9 H (4.5-11.0) X10^3/uL RBC 4.26 L (4.5-5.9) X10^6/uL Hgb 9.7 L (13.5-17.5) g/dL Hct 30.4 L (41-53) % MCV 71.3 L (80-100) fL MCH 22.7 L (26-34) PG MCHC 31.9 (30-36) % RDW 13.9 (11.6-14.8) % Plt Count 278 (150-400) X10^3/uL Neut % (Auto) 94.4 H (50-75) % Lymph % (Auto) 1.2 L (25-40) % [place] % (Auto) 3.9 (3-14) % Eos % (Auto) 0.1 L (2-4) % Baso % (Auto) 0.4 (0-2) % Neut # (Auto) 85471 H (3353-6902) /uL Lymph # (Auto) 200 L (9479-1552) /uL [place] # (Auto) 700 (0-900) /uL Eos # (Auto) 0 (0-450) /uL Baso # (Auto) 100 (0-100) /uL Sodium 133 L (137-145) mmol/L Potassium 3.9 (3.4-5.1) mmol/L Chloride 102 (98-107) mmol/L Carbon Dioxide 27 (22-32) mmol/L BUN 61 H (9-20) mg/dL Creatinine 1.68 H (0.66-1.25) mg/dL Estimated GFR 39.2 L (>60) mL/min BUN/Creatinine Ratio 36.3 H (6-22) Glucose 179 H (80-110) mg/dL Lactate 1.7 (0.7-2.1) mmol/L Calcium 7.8 L (8.4-10.2) mg/dL Total Bilirubin 1.0 (0.2-1.3) mg/dL AST 142 H (17-59) IU/L ALT 124 H (<50) IU/L Alkaline Phosphatase 169 H (38-126) U/L Total Creatine Kinase 50 L (55-170) U/L CK-MB (CK-2) TNP CK-MB (CK-2) Rel Index TNP Troponin I 0.134 H* (0.01-0.034) ng/mL Total Protein 5.5 L (6.3-8.2) g/dL Albumin 2.5 L (3.5-5.0) g/dL Globulin 3.0 (1.7-4.1) g/dL Albumin/Globulin Ratio 0.8 L (1.0-2.8) Lipase 31 (23-300) U/L Procalcitonin 61.1 H (<0.5) ng/mL Urine Color Urine Appearance Urine pH (4.5-8.0) Ur Specific [place] (1.000-1.035) Urine Protein (Negative) Urine Glucose (UA) (Negative) g/dL Urine Ketones (NEGATIVE) Urine Occult Blood (Negative) Urine Nitrate (Negative) Urine Bilirubin (NEGATIVE) Urine Urobilinogen (0.2) E.U./dL Ur Leukocyte Esterase (NEGATIVE) Urine RBC (0-5/HPF) Urine WBC (0-5/HPF) Ur Squamous Epith Cells (0-5/HPF) Urine Bacteria (None) Hyaline Casts (None) Granular Casts (None) Urine Mucus (Negative) Ur Culture Indicated? A. baumannii (PCR) (Not Detect) Madhavi albicans (PCR) (Not Detect) C. glabrata (PCR) (Not Detect) C. krusei (PCR) (Not Detect) C. parapsilosis (PCR) (Not Detect) C. tropicalis (PCR) (Not Detect) SARS-CoV-2 (PCR) (Negative) Enterobacteriac sp PCR (Not Detect) E. cloacae complex PCR (Not Detect) Enterococcus sp PCR (Not Detect) E. coli (PCR) (Not Detect) H. influenzae (PCR) (Not Detect) Klebsiella oxytoca PCR (Not Detect) Klebsiella pneumoniae (Not Detect) List. monocytogenes PCR (Not Detect) N. meningitidis (PCR) (Not Detect) Proteus species (PCR) (Not Detect) Serratia marcescens PCR (Not Detect) Staphylococcus sp PCR (Not Detect) Staph aureus (PCR) (Not Detect) mecA-Methicil Res Gene (Not Detect) Streptococcus sp PCR (Not Detect) Group A Strep (PCR) (Not Detect) Strep agalactiae (PCR) (Not Detect) Strep pneumoniae (PCR) (Not Detect) P. aeruginosa (PCR) (Not Detect) Kelly/B-Vanco Res Genes (Not Detect) KPC-Carbap Res Gene PCR (Not Detect) 08/10/21 08/10/21 08/10/21 Range/Units 11:00 11:00 11:15 WBC (4.5-11.0) X10^3/uL RBC (4.5-5.9) X10^6/uL Hgb (13.5-17.5) g/dL Hct (41-53) % MCV (80-100) fL MCH (26-34) PG MCHC (30-36) % RDW (11.6-14.8) % Plt Count (150-400) X10^3/uL Neut % (Auto) (50-75) % Lymph % (Auto) (25-40) % [place] % (Auto) (3-14) % Eos % (Auto) (2-4) % Baso % (Auto) (0-2) % Neut # (Auto) (8022-7915) /uL Lymph # (Auto) (6275-0147) /uL [place] # (Auto) (0-900) /uL Eos # (Auto) (0-450) /uL Baso # (Auto) (0-100) /uL Sodium (137-145) mmol/L Potassium (3.4-5.1) mmol/L Chloride (98-107) mmol/L Carbon Dioxide (22-32) mmol/L BUN (9-20) mg/dL Creatinine (0.66-1.25) mg/dL Estimated GFR (>60) mL/min BUN/Creatinine Ratio (6-22) Glucose (80-110) mg/dL Lactate (0.7-2.1) mmol/L Calcium (8.4-10.2) mg/dL Total Bilirubin (0.2-1.3) mg/dL AST (17-59) IU/L ALT (<50) IU/L Alkaline Phosphatase (38-126) U/L Total Creatine Kinase (55-170) U/L CK-MB (CK-2) CK-MB (CK-2) Rel Index Troponin I (0.01-0.034) ng/mL Total Protein (6.3-8.2) g/dL Albumin (3.5-5.0) g/dL Globulin (1.7-4.1) g/dL Albumin/Globulin Ratio (1.0-2.8) Lipase (23-300) U/L Procalcitonin (<0.5) ng/mL Urine Color Yellow Urine Appearance Clear Urine pH 5.0 (4.5-8.0) Ur Specific [place] 1.010 (1.000-1.035) Urine Protein 1+ H (Negative) Urine Glucose (UA) Negative (Negative) g/dL Urine Ketones Negative (NEGATIVE) Urine Occult Blood Trace-intact (Negative) Urine Nitrate Negative (Negative) Urine Bilirubin Negative (NEGATIVE) Urine Urobilinogen 0.2 (0.2) E.U./dL Ur Leukocyte Esterase Negative (NEGATIVE) Urine RBC None seen (0-5/HPF) Urine WBC 0-1/hpf (0-5/HPF) Ur Squamous Epith Cells None seen (0-5/HPF) Urine Bacteria None seen (None) Hyaline Casts 1-5/lpf (None) Granular Casts 1-5/lpf (None) Urine Mucus 1+ H (Negative) Ur Culture Indicated? Cult not indicated A. baumannii (PCR) Not detected (Not Detect) Madhavi albicans (PCR) Not detected (Not Detect) C. glabrata (PCR) Not detected (Not Detect) C. krusei (PCR) Not detected (Not Detect) C. parapsilosis (PCR) Not detected (Not Detect) C. tropicalis (PCR) Not detected (Not Detect) SARS-CoV-2 (PCR) Negative (Negative) Enterobacteriac sp PCR Detected H (Not Detect) E. cloacae complex PCR Not detected (Not Detect) Enterococcus sp PCR Not detected (Not Detect) E. coli (PCR) Not detected (Not Detect) H. influenzae (PCR) Not detected (Not Detect) Klebsiella oxytoca PCR Not detected (Not Detect) Klebsiella pneumoniae Detected H (Not Detect) List. monocytogenes PCR Not detected (Not Detect) N. meningitidis (PCR) Not detected (Not Detect) Proteus species (PCR) Not detected (Not Detect) Serratia marcescens PCR Not detected (Not Detect) Staphylococcus sp PCR Not detected (Not Detect) Staph aureus (PCR) Not detected (Not Detect) mecA-Methicil Res Gene Not detected (Not Detect) Streptococcus sp PCR Not detected (Not Detect) Group A Strep (PCR) Not detected (Not Detect) Strep agalactiae (PCR) Not detected (Not Detect) Strep pneumoniae (PCR) Not detected (Not Detect) P. aeruginosa (PCR) Not detected (Not Detect) Kelly/B-Vanco Res Genes Not detected (Not Detect) KPC-Carbap Res Gene PCR Not detected (Not Detect) 08/10/21 08/10/21 Range/Units 16:00 16:00 WBC (4.5-11.0) X10^3/uL RBC (4.5-5.9) X10^6/uL Hgb (13.5-17.5) g/dL Hct (41-53) % MCV (80-100) fL MCH (26-34) PG MCHC (30-36) % RDW (11.6-14.8) % Plt Count (150-400) X10^3/uL Neut % (Auto) (50-75) % Lymph % (Auto) (25-40) % [place] % (Auto) (3-14) % Eos % (Auto) (2-4) % Baso % (Auto) (0-2) % Neut # (Auto) (4808-3670) /uL Lymph # (Auto) (0363-5865) /uL [place] # (Auto) (0-900) /uL Eos # (Auto) (0-450) /uL Baso # (Auto) (0-100) /uL Sodium (137-145) mmol/L Potassium (3.4-5.1) mmol/L Chloride (98-107) mmol/L Carbon Dioxide (22-32) mmol/L BUN (9-20) mg/dL Creatinine (0.66-1.25) mg/dL Estimated GFR (>60) mL/min BUN/Creatinine Ratio (6-22) Glucose (80-110) mg/dL Lactate 1.4 (0.7-2.1) mmol/L Calcium (8.4-10.2) mg/dL Total Bilirubin (0.2-1.3) mg/dL AST (17-59) IU/L ALT (<50) IU/L Alkaline Phosphatase (38-126) U/L Total Creatine Kinase (55-170) U/L CK-MB (CK-2) CK-MB (CK-2) Rel Index Troponin I 0.083 H (0.01-0.034) ng/mL Total Protein (6.3-8.2) g/dL Albumin (3.5-5.0) g/dL Globulin (1.7-4.1) g/dL Albumin/Globulin Ratio (1.0-2.8) Lipase (23-300) U/L Procalcitonin (<0.5) ng/mL Urine Color Urine Appearance Urine pH (4.5-8.0) Ur Specific [place] (1.000-1.035) Urine Protein (Negative) Urine Glucose (UA) (Negative) g/dL Urine Ketones (NEGATIVE) Urine Occult Blood (Negative) Urine Nitrate (Negative) Urine Bilirubin (NEGATIVE) Urine Urobilinogen (0.2) E.U./dL Ur Leukocyte Esterase (NEGATIVE) Urine RBC (0-5/HPF) Urine WBC (0-5/HPF) Ur Squamous Epith Cells (0-5/HPF) Urine Bacteria (None) Hyaline Casts (None) Granular Casts (None) Urine Mucus (Negative) Ur Culture Indicated? A. baumannii (PCR) (Not Detect) Madhavi albicans (PCR) (Not Detect) C. glabrata (PCR) (Not Detect) C. krusei (PCR) (Not Detect) C. parapsilosis (PCR) (Not Detect) C. tropicalis (PCR) (Not Detect) SARS-CoV-2 (PCR) (Negative) Enterobacteriac sp PCR (Not Detect) E. cloacae complex PCR (Not Detect) Enterococcus sp PCR (Not Detect) E. coli (PCR) (Not Detect) H. influenzae (PCR) (Not Detect) Klebsiella oxytoca PCR (Not Detect) Klebsiella pneumoniae (Not Detect) List. monocytogenes PCR (Not Detect) N. meningitidis (PCR) (Not Detect) Proteus species (PCR) (Not Detect) Serratia marcescens PCR (Not Detect) Staphylococcus sp PCR (Not Detect) Staph aureus (PCR) (Not Detect) mecA-Methicil Res Gene (Not Detect) Streptococcus sp PCR (Not Detect) Group A Strep (PCR) (Not Detect) Strep agalactiae (PCR) (Not Detect) Strep pneumoniae (PCR) (Not Detect) P. aeruginosa (PCR) (Not Detect) Kelly/B-Vanco Res Genes (Not Detect) KPC-Carbap Res Gene PCR (Not Detect) MDM Narrative Medical decision making narrative: On re-evaluation. After 2 L of fluid blood pressure was up to 90/54. Will begin Levophed through a peripheral IV. Significant leukocytosis with left shift H&H today is 9.7 and 30.4 on July 29 it was 12.7 and 39.1 no obvious signs of bleeding will need to repeat Significant dehydration with acute kidney injury creatinine on July 29 was 1 today is 1.68 with a BUN of 61. Continue with fluids. LFTs so slight increase in AST and ALT, bilirubin and alkaline phosphatase are stable. Troponin is elevated at 0.13 for without acute ischemic EKG changes 1215pm records from [facility] Emergency Department on the a reviewed. Patient was felt to have acute cholecystitis offered surgery and seen and evaluated by the surgeon. Patient declined surgery and plan was for him to follow-up in outpatient clinic. 1220 patient is re-evaluated. Blood pressure systolic is now up to 115. He is more cognitively appropriate and able to interact with additional questioning. Past about his previous ER visits and the family perception regarding the visit from the was that his gallbladder was not that sick and surgery was not required and the physician that they talk to was not sure what surgery would be done which made them uncomfortable. They chose outpatient follow-up. As symptoms worsened over this week he called to schedule a follow-up appointment with his primary care provider at the [facility]. That provider was leaving a new provider is coming in and an appointment to establish care is schedule for August 14. His daughter came up to visit this weekend and felt that he was getting worse. When he developed a fever last night and again this morning she decided to bring him to the ER but was not able to get him into the car because of his weakness the son called 911. End of life issues are reviewed and patient is absolutely full code and would want surgery 130pm studies reviewed in real-time with radiologist. Compared to CT scan done at [facility] 2 weeks ago the hepatic lesions are new suggesting abscess rather than metastatic disease. Given his acute cholecystitis, sepsis, hepatic abscesses and NSTEMI he will need a higher level of care and will be and looking for bed availability. At this time he is getting a PICC line placed and he has responded nicely to fluids with blood pressure currently at 111/65 without pressors. 2:38 transfer center. Will make sure CT scan has been sent, detailed case are given to transfer center nurse. 240 acute deteriorations clinical status. Significant rigors with rhythm change to a wide complex tachycardia in the 150 and significant hypertension complaining of chest pain and tightness. He was given rectal Tylenol for the rigors, additional fluids and pain control. Is now back down to sinus tachycardia in the 117 range with blood pressures stable at 103 systolic with fluids running at 200 an hour and not currently needing pressors. The event happened shortly after midline catheter was placed for more central venous access. There is no evidence of pneumothorax post procedure labs post event show that lactate is trending down and troponin was also trending down. Will need follow. 500pm Discussion with MICU fellow at [facility], DR Putnam. Will need to discuss with Surgery and/or IR. 6:48 care is transferred to Dr Looney ([facility]) -patient received in sign-out. I performed independent history and physical exam and no significant additions are needed. Patient has been accepted at the [facility]. Patient and family understand and agree with the plan. Due to the complexity and fragile nature of the patient's clinical picture air medical transport is most appropriate. Air left made it half-way here before being turned back due to weather, after discussion we activated they are fixed wing team <Tani Looney DO - Last Filed: 08/11/21 17:13> Critical Care Time Critical Care Time: Yes Total Critical Care Time: 120 Attestation: The high probability of a clinically significant, sudden or life threatening deterioration of the [CV/GI] system(s) required my full and direct attention, intervention and personal management. The aggregate critical care time was [120] minutes. This time is in addition to time spent performing reported procedures but includes the following: [x] Data Review and interpretation [x] Patient assessment and monitoring of vital signs [x] Documentation [x] Medication orders and management Discharge Plan Departure Patient Disposition: [facility] Clinical Impression: Sepsis, Acute cholecystitis, Hepatic abscess, Non-STEMI (non-ST elevated myocardial infarction) Prescriptions: No Action telmisartan [Micardis] 40 mg Tablet 20 mg PO DAILY 0RF tamsulosin 0.4 mg Capsule 0.4 mg PO BEDTIME 0RF finasteride 1 mg Tablet 1 mg PO DAILY 0RF Rx Instructions: unsure of dosage oxycodone-acetaminophen [Percocet] 5-325 mg tablet 1 tab PO Q6HR PRN (Reason: Pain (Scale Score 1-3)) 0RF Label Comments: 1 EACH PO Q6H As Needed for pain lidocaine 5 % adhesive patch,medicated 1 patch topical DAILY 0RF ondansetron 4 mg tablet,disintegrating 4 mg PO Q6HR PRN (Reason: Nausea And Vomiting) 0RF Label Comments: DISSOLVE 1 TABLET IN MOUTH EVERY 6 HOURS NEEDED FORNAUSEA AND VOMITING loratadine 10 mg Tablet 10 mg PO DAILY 0RF Referrals: Amanda Darden MD [Primary Care Provider] - ED Sign-out <Phoebe Vick MD - Last Filed: 08/17/21 04:08> Cosign ED Attending Cosignature Attestation: I was immediately available in the department for consultation throughout this patient's visit. I agree with documentation as above. Phoebe Vick MD
--- NOTE | 2021-08-10 11:09 | DI.CT.S_ITS ---
PROCEDURE: CT ABDOMEN PELVIS W CON INDICATIONS: RUQ pain, concern for sepsis due to cholecystitis TECHNIQUE: After the administration of intravenous contrast, axial sections acquired from the lung bases to the pubic symphysis. Coronal and sagittal reformats were performed. For radiation dose reduction, the following was used: automated exposure control, adjustment of mA and/or kV according to patient size. COMPARISON: None. FINDINGS: Lower thorax: Moderate right pleural effusion with calcified pleural plaquing noted. Associated compressive atelectasis and or infiltrate. Left lung bases clear. Heart size normal. No hiatal hernia. Liver: Multiple hepatic low-density lesions measure up to 5.0 x 3.3 cm in the right hepatic lobe. Irregular enhancement noted without significant encapsulation. Biliary system: Gallbladder shows wall thickening and probable trace pericholecystic fluid. Pancreas: Unremarkable without mass or inflammation evident. Spleen: Normal in size and density. Adrenals: Normal morphology and density. Reproductive system: Unremarkable as visualized. Urinary system: Normal renal size and attenuation. 2.7 cm right renal cortical simple cyst present. No renal calculi, hydronephrosis, or solid mass present. Urinary bladder is decompressed with a Daams catheter curled in the lumen of the bladder. Gastrointestinal system: The bowel is unremarkable without evidence of bowel obstruction or inflammation. The stomach appears unremarkable. Probable duodenal large diverticuli measure up to 2.7 cm arise from the 3rd portion the duodenum. Multiple diverticula arise from the sigmoid colon without evidence of diverticulitis. Appendix: No findings to suggest acute appendicitis. Peritoneal spaces: No mesenteric or retroperitoneal adenopathy. No free air. Small amount of free fluid noted in the pelvis. Vasculature: Aortic atherosclerotic vascular calcification noted without evidence of aneurysm. Abdominal wall: Small ventral hernia contains fat without bowel involvement. Musculoskeletal: Normal bone mineralization. Degenerative disc disease and arthropathy noted in lower lumbar spine. No acute fractures. IMPRESSION: 1. Multiple low-density hepatic lesions with irregular enhancement. Differential includes metastatic disease, and given the clinical history, multifocal hepatic abscess is also possible. 2. Sigmoid diverticulosis without evidence of diverticulitis. 3. Moderate right pleural effusion with associated compressive atelectasis and or infiltrate as well as calcified pleural plaquing 4. Mild gallbladder wall thickening with pericholecystic fluid. Consider ultrasound correlation. Approved by: Dez Koch M.D. on 08/10/2021 at 11:43
[2021-08-10 11:20] LABS: Add Manual Diff / Slide Review NO; Basophils Absolute Auto 100 /uL (0-100); Basophils Percent Auto 0.4 % (0-2); Eosinophils Absolute Auto 0 /uL (0-450); Eosinophils Percent Auto 0.1 % (2-4); Hematocrit 30.4 % (41-53); Hemoglobin 9.7 g/dL (13.5-17.5); Lymphocytes Absolute Auto 200 /uL (1100-4500); Lymphocytes Percent Auto 1.2 % (25-40); Mean Corpuscular HGB Conc 31.9 % (30-36); Mean Corpuscular Hemoglobin 22.7 PG (26-34); Mean Corpuscular Volume 71.3 fL (80-100); Monocytes Absolute Auto 700 /uL (0-900); Monocytes Percent Auto 3.9 % (3-14); Neutrophils Absolute Auto 15900 /uL (1500-7000); Neutrophils Percent Auto 94.4 % (50-75); Platelet Count 278 X10^3/uL (150-400); Red Blood Cell Count 4.26 X10^6/uL (4.5-5.9); Red Cell Distribution Width 13.9 % (11.6-14.8); White Blood Cell Count 16.9 X10^3/uL (4.5-11.0)
[2021-08-10 11:25] LABS: Lactate (Lactic Acid) 1.7 mmol/L (0.7-2.1)
[2021-08-10 11:26] LABS: Alanine Aminotransferase 124 IU/L (<50); Albumin 2.5 g/dL (3.5-5.0); Albumin Globulin Ratio 0.8 (1.0-2.8); Alkaline Phosphatase 169 U/L (38-126); Aspartate Aminotransferase 142 IU/L (17-59); BUN Creatinine Ratio 36.3 (6-22); Blood Urea Nitrogen 61 mg/dL (9-20); Calcium 7.8 mg/dL (8.4-10.2); Carbon Dioxide 27 mmol/L (22-32); Chloride 102 mmol/L (98-107); Creatine Kinase 50 U/L (55-170); Estimated Glomerular Filt Rate 39.2 mL/min (>60); Glucose 179 mg/dL (80-110); HEMOLYSIS < 15 (0-50); Lipase 31 U/L (23-300); Potassium 3.9 mmol/L (3.4-5.1); Sodium 133 mmol/L (137-145); Total Protein 5.5 g/dL (6.3-8.2)
[2021-08-10] MEDS: PIPERACILLIN/TAZO 4.5 GM in SODIUM CHLORIDE 0.9% 100 ML 200 ML IV (11:32)
[2021-08-10] MEDS: SODIUM CHLORIDE 0.9% 1,973.13 ML 657.71 ML IV (11:32)
[2021-08-10 11:43] LABS: Procalcitonin 61.1 ng/mL (<0.5)
[2021-08-10 11:59] LABS: Troponin I 0.134 ng/mL (0.01-0.034)
[2021-08-10 12:00] LABS: Appearance Urine UA CLEAR; Bilirubin Urine UA NEGATIVE (NEGATIVE); Color Urine UA YELLOW; Glucose Urine UA NEGATIVE (Negative); Ketones Urine UA NEGATIVE (NEGATIVE); Leukocyte Esterase Urine UA NEGATIVE (NEGATIVE); Nitrite Urine UA NEGATIVE (Negative); Occult Blood Urine UA TRACE-INTACT (Negative); Protein Urine UA 1+ (Negative); Urobilinogen Urine UA 0.2 E.U./dL (0.2)
[2021-08-10 12:17] LABS: Bacteria Urine None Seen; Mucus Urine 1+ (Negative); RBC Urine None Seen (0-5/HPF); Squamous Epithelial Cell Urine None Seen (0-5/HPF); WBC Urine 0-1/HPF (0-5/HPF)
[2021-08-10] MEDS: SODIUM CHLORIDE 0.9% 1,000 ML 1000 ML IV ×2 (12:17→14:45)
[2021-08-10 12:18] LABS: Culture Indicated Urine Cult Not Indicated; Granular Casts Urine 1-5/LPF; Hyaline Casts Urine 1-5/LPF
[2021-08-10 13:14] LABS: COVID19 -Nasal RAPID Negative (Negative)
--- NOTE | 2021-08-10 14:04 | DI.RAD.S_ITS ---
PROCEDURE: XR CHEST 1V INDICATIONS: picc placement TECHNIQUE: One view of the chest was acquired. COMPARISON: None. FINDINGS: Surgical changes and devices: Right-sided PICC line tip is seen in the region of medial right subclavian vein, and should be repositioned. Lungs and pleura: Mild pulmonary vascular congestion is noted in visualized right lung field with questionable ill-defined patchy airspace opacities in right lung. No pleural effusions or pneumothorax. Mediastinum: Mediastinal contours appear normal. Heart size is normal. Bones and chest wall: No suspicious bony lesions. Overlying soft tissues appear unremarkable. IMPRESSION: Right-sided PICC line tip is in the region of medial right subclavian vein. Suggestion of patchy right-sided pulmonary infiltrates. No gross pneumothorax. Dictated by: Dejuan Art M.D. on 08/10/2021 at 15:09 Approved by: Dejuan Art M.D. on 08/10/2021 at 15:10
[2021-08-10] MEDS: ACETAMINOPHEN 650 MG SUPP PR (15:00)
[2021-08-10] MEDS: HYDROMORPHONE 0.5 MG INJ IV ×2 (15:40→19:42)
[2021-08-10] MEDS: LACTATED RINGERS 1,000 ML 200 ML IV ×2 (16:03→21:19)
--- NOTE | 2021-08-10 16:14 | PC.NURSE ---
1430: During PICC placement, patient's HR started to elevate and rigors developed. Oral temp was 99.7. 1445: Dr Vick to bedside for change in condition. Manual BP was 200/106, unable to get accurate O2 reading, started on 15L by NRB mask. Urine output measured at 325ml. 1500: Verbal order for [place] tylenol, and was placed. Bear hugger applied and turned to highest setting. Patient is restless, having difficulty following commands and staying still but is alert. 1L NS verbal order, initiated. 1508: 38 respirations. Patient denied SOB but was unable to slow breathing. Rigors continued. 1524: Temp 102, oral. Bear hugger removed. 1540: Patient continues to be restless, new order for 0.5mg Dilaudid and is given. 1545: 1 hour urine output measured at 100ml 1600: Verbal order for 1L lactated ringers at 200ml/hr, initiated. 1615: BP decreased to 85/43, map of 62. Patient appears to be resting comfortably. 1645: Patient calling out from room, initally thought he was at home but acknowledged that he is at the hospital. 1 hour urine output 45ml.
[2021-08-10 16:18] LABS: Lactate (Lactic Acid) 1.4 mmol/L (0.7-2.1)
[2021-08-10 16:30] LABS: Troponin I 0.083 ng/mL (0.01-0.034)
[2021-08-10] MEDS: PIPERACILLIN/TAZO 3.375 GM in SODIUM CHLORIDE 0.9% 100 ML 25 ML IV (20:04)
[2021-08-11 07:42] LABS: Acinetobacter baumannii Not Detected (Not Detect); Candida albicans Not Detected (Not Detect); Candida glabrata Not Detected (Not Detect); Candida krusei Not Detected (Not Detect); Candida parapsilosis Not Detected (Not Detect); Candida tropicalis Not Detected (Not Detect); E. coli Not Detected (Not Detect); Enterobacter cloacae complex Not Detected (Not Detect); Enterobacteriaceae species Detected (Not Detect); Enterococcus species Not Detected (Not Detect); Haemophilus influenzae Not Detected (Not Detect); KPC (carbapenem-resist gene) Not Detected (Not Detect); Listeria monocytogenes Not Detected (Not Detect); Methicillin-resistant gene Not Detected (Not Detect); Neisseria meningitidis Not Detected (Not Detect); Proteus species Not Detected (Not Detect); Pseudomonas aeruginosa Not Detected (Not Detect); Serratia marcescens Not Detected (Not Detect); Staphylococcus species Not Detected (Not Detect); Streptococcus agalactiae (Gr B Not Detected (Not Detect); Streptococcus pneumonia Not Detected (Not Detect); Streptococcus pyogenes (Gr A) Not Detected (Not Detect); Streptococcus species Not Detected (Not Detect); Vancomycin-rest genes A/B Not Detected (Not Detect)
== END 2021-08-11 00:20 | disposition short-term general hospital (02) ==
PROVIDERS: Emergency Medicine; Emergency Provider Emergency Medicine; PCP Internal Medicine
DX: I21.4 Non-ST elevation (NSTEMI) myocardial infarction (principal); A41.9 Sepsis, unspecified organism; K81.0 Acute cholecystitis; K75.0 Abscess of liver; I10 Essential (primary) hypertension; Z20.822 Contact with and (suspected) exposure to COVID-19; Z87.891 Personal history of nicotine dependence
CPT/HCPCS: 36415; 36569; 71045; 74177; 80053; 81001; 82550; 83605; 83690; 84145; 84484; 85025; 87040; 87150; 87186; 87205; 87635; 93005; 96361; 96365; 96366; 96375; 99285; 99291; 99292; C9803; J1170; J2543; Q9967